=== PATIENT | male | born 1940 | race Caucasian/White ===

== ENCOUNTER 2017-07-01 12:02 | Inpatient (IN) | payer MEDICARE ==
[2017-07-01 12:37] LABS: BASO % 0.2 % (0-6); EOS % 0.8 % (0-6); GRAN % 74.1 % (47-80); HEMATOCRIT 43.4 % (42.0-52.0); HEMOGLOBIN 14.7 gm/dl (14.0-18.0); LYMPH % 15.7 % (16-45); MEAN CELL VOLUME 93.5 fl (81-97); MEAN CORPUSCULAR HEMOGLOBIN 31.7 pg (27-33); MEAN CORPUSCULAR HGB CONC 33.9 g/dl (32-36); MEAN PLATELET VOLUME 10.8 fl (7.4-10.4); MONO % 9.2 % (0-9); PLATELET COUNT 270 K/uL (130-400); RED BLOOD COUNT 4.64 M/uL (4.40-5.70); RED CELL DISTRIBUTION WIDTH 13.7 % (11.5-14.5); WHITE BLOOD COUNT W/O DIFF 12.3 K/uL (4.2-12.2)
--- NOTE | 2017-07-01 12:40 | Emergency Department Record ---
History of Present Illness - General Chief Complaint: Altered Mental Status Stated Complaint: ALTERED MENTAL STATE Time Seen by Provider: 07/01/17 12:23 Source: Patient, Family Mode of Arrival: Wheelchair Limitations: No limitations - History of Present Illness Initial Comments: The patient is here with family due to being confused this AM. The patient lives with his niece and she states since about 9am when she first spoke with him he has been confused. She also stated that at 6am the patient kept turning his TV off and on which is unusual for him. He last was seen normal last evening > 12 hours ago. There has been no hx of fall, trauma, fever, chills, CP , SOB, or AP. MD Complaint: Altered mental status Onset/Timin -: Hour(s) - [place] Coma Scale Eye Response: (4) Open spontaneously Motor Response: (6) Obeys commands Verbal Response: (4) Confused conversation [place] Total: 14 - Symptoms of Stroke Onset of Symptoms Date: 07/01/17 Onset of Symptoms Time: 06:00 Symptom Onset Unknown: Yes (family first noticed at 0600) Symptoms of stroke: Onset of Confusion, Unable to Think Clearly, Unsteady When Walking - Related Data Home Medications Medication Instructions Recorded Confirmed Last Taken Amlodipine Besylate [Norvasc] 10 mg PO DAILY 07/01/17 07/01/17 1 Day Ago ~06/30/17 Atorvastatin Calcium [Lipitor] 20 mg PO DAILY 07/01/17 07/01/17 1 Day Ago ~06/30/17 Benazepril HCl [Lotensin] 40 mg PO DAILY 07/01/17 07/01/17 1 Day Ago ~06/30/17 Hydrochlorothiazide [Hctz 12.5MG] 12.5 mg PO DAILY 07/01/17 07/01/17 1 Day Ago ~06/30/17 Insulin Detemir [Levemir] 6 units SQ DAILY 07/01/17 07/01/17 07/01/17 Allergies Allergy/AdvReac Type Severity Reaction Status Date / Time No Known Drug Allergies Allergy Verified 07/01/17 12:29 Travel Screening - Travel/Exposure Within Last 30 Days Have you traveled within the last 30 days?: No - Travel/Exposure Within Last Year Have you traveled outside the [place] in the last year?: No - Additonal Travel Details Have you been exposed to anyone with a communicable illness?: No - Travel Symptoms Symptom Screening: None Review of Systems Constitutional: Denies: Chills, Fever Eyes: Denies: Eye discharge ENT: Denies: Congestion Respiratory: Denies: Cough, Dyspnea Cardiovascular: Denies: Arrhythmia, Chest pain Past Medical History - SOCIAL HISTORY Smoking Status: Never smoker Alcohol Use: None Drug Use: None - RESPIRATORY Hx Respiratory Disorders: No - CARDIOVASCULAR Hx Hypertension: Yes Hx Irregular Heartbeat: Yes - NEURO Hx Neuro Disorders: No - GI Comment:: hernia - Hx Genitourinary Disorders: No - ENDOCRINE Hx Diabetes: Yes Hx Thyroid Disease: No - MUSCULOSKELETAL Hx Arthritis: Yes - PSYCH Hx Psych Problems: No - HEMATOLOGY/ONCOLOGY Hx Hematology/Oncology Disorders: No Family Medical History Any Significant Family History?: Yes Family Hx Comment (NOT TO BE USED IN PLACE OF ITEMS BELOW): Pt confused Physical Exam - General General Appearance: Alert, Cooperative, No acute distress - Head Head exam: Atraumatic, Normocephalic, Normal inspection - Eye Eye exam: Normal appearance, PERRL - Neck Neck exam: Normal inspection, Full ROM. negative: Tenderness - Respiratory Respiratory exam: Normal lung sounds bilaterally. negative: Respiratory distress - Cardiovascular Cardiovascular Exam: Regular rate, Normal rhythm, Normal heart sounds - GI/Abdominal GI/Abdominal exam: Soft, Normal bowel sounds. negative: Tenderness - Neurological Neurological exam: Alert. negative: Motor sensory deficit (There is no arm or leg numbness, weakness or tingling.), Oriented X3 (The patient is only oriented to name, place, Bday but not age, day or year. ) Course Vital Signs 07/01/17 12:11 Temperature 98.2 F Pulse Rate 84 Respiratory 16 Rate Blood Pressure 133/89 Pulse Ox 95 - Reevaluation(s) Reevaluation #1: The patient is doing a little better but is still mildly confused as to some things. He knows his name, Bday, place, and the present and past presidents of the [place]. He is confused to the day of the week and year. The patient is able to get up walking with very minimal ataxia but no focal weakness. Due to those facts I am concerned he may have had a small CVA during the night and recommended hospital admission which he accepted. I also did discuss the case with Dr. Myles and he agrees to the plan. 07/01/17 14:00 Medical Decision Making - Data Complexity MDM Data: Labs Ordered and/or Reviewed, X-Ray Ordered and/or Reviewed, EKG Ordered and/or Reviewed - Lab Data Result diagrams: 07/01/17 12:15 07/01/17 12:15 - EKG Data -: EKG Interpreted by Me EKG: No Acute Changes, Unchanged From Previous - Radiology Data Radiology results: Report reviewed (Head CT and CXR: No acute changes.) Disposition Disposition: Admit Clinical Impression: CVA (cerebral vascular accident) Qualifiers: CVA mechanism: unspecified Qualified Code(s): I63.9 - Cerebral infarction, unspecified Disposition: Still a Patient at [facility] Decision to Admit: Admit from ER Decision to Admit Date: 07/01/17 Decision to Admit Time: 14:03 Accepting Physician: Shameka Time Discussed w/Accepting Physician: 14:03 Condition: (2) Stable Instructions: Altered Mental Status (ED) Forms: Patient Portal Access Time of Disposition: 14:03 Quality - Quality Measures Quality Measures: N/A - Blood Pressure Screening View Details: Yes Does Patient Have Any of the Following: Active Dx of HTN Blood Pressure Classification: Pre-Hypertensive BP Reading Systolic Measurement: 133 Diastolic Measurement: 89 Screening for High Blood Pressure: Patient Exclusion, Hx of HTN [[id number]]
[2017-07-01 12:50] LABS: BLOOD UREA NITROGEN 12 mg/dL (8-23); CREATININE 0.9 mg/dL (0.7-1.2); EST GLOMERULAR FILTRATION RATE > 60 mL/min
[2017-07-01 12:52] LABS: PARTIAL THROMBOPLASTIN TIME 25.2 SECONDS (24.5-39.1); PROTHROMBIN TIME (PATIENT) 10.6 SECONDS (9.5-12.1)
[2017-07-01 12:53] LABS: GLUCOSE,RANDOM 142 mg/dL (74-109)
[2017-07-01 12:56] LABS: CREATINE PHOSPHOKINASE 56 U/L (39-308)
[2017-07-01 12:58] LABS: CKMB 2.4 ng/mL (<6.73)
[2017-07-01] MEDS ORDERED: ASPIRIN 325 MG TABLET PO ONE (13:18)
[2017-07-01] MEDS ORDERED: ACETAMINOPHEN 500 MG TABLET PO PRN (16:02)
[2017-07-01] MEDS: ATORVASTATIN 20 MG TABLET PO SCH (17:01)
[2017-07-01] MEDS: AMLODIPINE BESYLATE 5MG TAB PO SCH (17:01)
[2017-07-01] MEDS: BENAZEPRIL 20 MG TABLET PO SCH (17:01)
[2017-07-01] MEDS: HYDROCHLOROTHIAZIDE 12.5 MG CAPSULE PO SCH (17:01)
[2017-07-01] MEDS ORDERED: ZINC OXIDE 28.35 GM TUBE TOP PRN (18:22)
[2017-07-01 19:52] LABS: CKMB 2.8 ng/mL (<6.73)
[2017-07-02 03:16] LABS: BASO % 0.2 % (0-6); EOS % 0.8 % (0-6); GRAN % 68.3 % (47-80); HEMATOCRIT 42.7 % (42.0-52.0); HEMOGLOBIN 14.2 gm/dl (14.0-18.0); LYMPH % 20.9 % (16-45); MEAN CELL VOLUME 93.2 fl (81-97); MEAN CORPUSCULAR HGB CONC 33.3 g/dl (32-36); MEAN PLATELET VOLUME 10.2 fl (7.4-10.4); MONO % 9.8 % (0-9); PLATELET COUNT 262 K/uL (130-400); RED BLOOD COUNT 4.58 M/uL (4.40-5.70); WHITE BLOOD COUNT W/O DIFF 12.6 K/uL (4.2-12.2)
[2017-07-02 03:28] LABS: BLOOD UREA NITROGEN 11 mg/dL (8-23); CREATININE 0.8 mg/dL (0.7-1.2); EST GLOMERULAR FILTRATION RATE > 60 mL/min; GLUCOSE,RANDOM 122 mg/dL (74-109)
[2017-07-02 03:32] LABS: CKMB 3.5 ng/mL (<6.73)
[2017-07-02 08:49] LABS: URINE APPEARANCE CLOUDY; URINE BILIRUBIN NEGATIVE (NEGATIVE); URINE BLOOD NEGATIVE (NEGATIVE); URINE COLOR YELLOW; URINE GLUCOSE (UA) NEGATIVE (NEGATIVE); URINE KETONE NEGATIVE (NEGATIVE); URINE LEUKOCYTE ESTERASE TRACE (NEGATIVE); URINE NITRITE NEGATIVE (NEGATIVE); URINE PROTEIN NEGATIVE (NEGATIVE); URINE UROBILINOGEN 0.2 E.U./dL (0.20 - 1.00)
[2017-07-02 08:59] LABS: URINE BACTERIA NONE SEEN; URINE EPITHELIAL CELLS 0 - 2 (FEW); URINE RBC NONE SEEN (NONE SEEN); URINE WBC 0 - 2 (0-2/hpf)
--- NOTE | 2017-07-02 09:19 | CT SCAN REPORT ---
DATE: 07/01/2017. EXAM: CT OF THE HEAD WITHOUT CONTRAST. HISTORY: Confusion and weakness. COMPARISON: None. TECHNIQUE: Routine noncontrast CT images of the head were obtained. FINDINGS: The ventricles, basal cisterns, and sulci are prominent consistent with generalized cerebral atrophy. There is periventricular hypoattenuation extending to the centrum semiovale most consistent with chronic microvascular ischemia. Additionally there are findings suggesting previous bilateral lacunar infarcts. No intracranial mass or hemorrhage. The paranasal sinuses demonstrate scattered mucosal thickening with probable mucosal retention cysts, right greater than left, in the maxillary sinus. Orbital contents are unremarkable. IMPRESSION: 1. NO ACUTE INTRACRANIAL ABNORMALITY. 2. SENESCENT CHANGES. [facility] [id number] [facility]
--- NOTE | 2017-07-02 09:26 | RADIOLOGY REPORT ---
DATE: 07/01/2017. EXAM: CHEST, TWO VIEWS. HISTORY: Weakness and confusion. COMPARISON: None. TECHNIQUE: Two views of the chest were obtained. FINDINGS: There is cardiomegaly. Aortic tortuosity. There is mild blunting of the posterior costophrenic angles probably related to pleural fluid or pleural parenchymal scarring. No focal consolidation. IMPRESSION: NO CONVINCING ACUTE CARDIOPULMONARY ABNORMALITY. SMALL PLEURAL EFFUSIONS VERSUS PLEURAL PARENCHYMAL SCARRING. CARDIOMEGALY. JOB NUMBER: [id number] MTDD
[2017-07-02] MEDS: AMLODIPINE BESYLATE 5MG TAB PO SCH (09:27)
[2017-07-02] MEDS: ASPIRIN 325 MG TAB ENTERIC-COATED PO SCH (09:27)
[2017-07-02] MEDS: BENAZEPRIL 20 MG TABLET PO SCH (09:27)
[2017-07-02] MEDS: HYDROCHLOROTHIAZIDE 12.5 MG CAPSULE PO SCH (09:27)
[2017-07-02] MEDS: ATORVASTATIN 20 MG TABLET PO SCH (09:27)
[2017-07-02] MEDS: LEVEMIR FLEXTOUCH 100 UNIT/ML INSULIN PEN SQ SCH (09:33)
[2017-07-02] MEDS: ENOXAPARIN 40 MG/0.4 ML SYR SQ SCH (15:02)
--- NOTE | 2017-07-03 07:24 | RADIOLOGY REPORT ---
EXAM: LEFT KNEE, FOUR VIEWS HISTORY: LEFT KNEE PAIN. TECHNIQUE: Four views of the left knee were obtained. FINDINGS: Moderate knee joint effusion. No fracture or malalignment. No prominent degenerative changes. The bones are osteopenic. IMPRESSION: MODERATE KNEE JOINT EFFUSION WITHOUT ACUTE OSSEOUS ABNORMALITY. [facility]BER: [id number] [facility]
[2017-07-03 07:27] LABS: BASO % 0.1 % (0-6); EOS % 1.6 % (0-6); HEMATOCRIT 42.4 % (42.0-52.0); HEMOGLOBIN 14.6 gm/dl (14.0-18.0); LYMPH % 24.2 % (16-45); MEAN CELL VOLUME 92.4 fl (81-97); MEAN CORPUSCULAR HEMOGLOBIN 31.8 pg (27-33); MEAN CORPUSCULAR HGB CONC 34.4 g/dl (32-36); MEAN PLATELET VOLUME 10.4 fl (7.4-10.4); MONO % 11.1 % (0-9); PLATELET COUNT 249 K/uL (130-400); RED BLOOD COUNT 4.59 M/uL (4.40-5.70); RED CELL DISTRIBUTION WIDTH 13.7 % (11.5-14.5); WHITE BLOOD COUNT W/O DIFF 10.5 K/uL (4.2-12.2)
--- NOTE | 2017-07-03 08:03 | History and Physical Report ---
DATE OF EVALUATION: 07/01/2017 DATE OF ADMISSION: 07/01/2017 CHIEF COMPLAINT: Confusion. HISTORY OF THE PRESENT ILLNESS: His confusion started this morning about 9:30, got worse at 11 a.m. They brought him to the Emergency Department for evaluation. The family noticed at 6 a.m. he was turning the TV on and off. He seemed to be confused about that. Patient denies pain, denies chest pain, denies dizziness, and denies any other pain. Patient has edema from his socks. Patient has a left groin hernia. His blood sugar at home was 135 per family during this episode of confusion. He was evaluated in the ER by Dr. Andrews, who diagnosed a CVA. CAT scan of his head was showing no acute changes. Chest x-ray: Cardiomegaly, small pleural effusion versus scarring. Patient has no shortness of breath or cough. He seems to remember me when I evaluated him, and also he is answering questions fairly appropriately. He is not sure of the date and time. He knows the year. Patient is clearing when I evaluated him in the ER at about 4:05, but still seems a little slower than is typical for him answering questions. PAST MEDICAL HISTORY: Diabetes mellitus, hypertension, left inguinal hernia. PAST SURGICAL HISTORY: Left thumb surgery. He is also blind. 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 He says they cannot take that away from him. MEDICATIONS ON ADMISSION: Insulin Levemir 6 units daily, hydrochlorothiazide 12.5 daily, Lotensin 40 mg daily, Lipitor 20 mg daily, Norvasc 10 mg daily. ALLERGIES: No known allergies. FAMILY PSYCHOSOCIAL HISTORY: No significant family history brought up. Never smoked. No alcohol or drug use. REVIEW OF SYSTEMS: HEENT: No upper respiratory infection symptoms, cough, cold, or congestion. Cardiovascular: No chest pain, palpitations, or arrhythmias. Respiratory: No cough, cold or congestion. Gastrointestinal: No nausea, vomiting, diarrhea, black stools, or bloody stools. Genitourinary: No dysuria, hematuria, frequency, or burning on urination. Musculoskeletal: No joint or bony abnormalities. Neurologic: See Chief Complaint. Confusion with speech and what was going on. No seizures. His balance might be slightly off. Endocrine: He has diabetes mellitus type 2. Integument: No rash, ulcers, changes in moles, or yellow skin. PHYSICAL EXAMINATION: VITAL SIGNS: Height 5'8". Weight 220 pounds. Temperature 98.2, pulse 87, blood pressure 154/81, respiratory rate 16, O2 saturation 98% 2 liters nasal cannula. When he was on room air, it was 95%. HEENT: Pupils equal, round, and reactive to light and accommodation. Extraocular muscles intact. Throat is clear. Nose is clear. Tympanic membranes galaviz. NECK: Supple. No jugular venous distention. No hepatojugular reflux. No carotid bruits. Thyroid is smooth. CARDIOVASCULAR: Regular rate and rhythm without murmurs, clicks, rubs, or gallops. RESPIRATORY: Clear to auscultation and percussion. ABDOMEN: Soft, nontender, no hepatosplenomegaly. No masses or tenderness. Bowel sounds active. No bruits. EXTREMITIES: No pitting edema. No cyanosis or clubbing. Full range of motion. Peripheral pulses good. BREASTS: Normal male breasts. GENITALIA: Deferred. He has a known left inguinal hernia, large. Did not want any surgery on it. RECTAL: Deferred. NEUROLOGIC: Cranial nerves II-XII intact. No gross deficits. Sensation normal. Strength normal. Deep tendon reflexes equal bilaterally. Babinski is negative. His speech and his thought patterns were off slightly this morning. MENTAL STATUS: Alert and oriented to person and place. Some confusion on time as far as the date, the year, and the month. IMPRESSION: 1. CVA versus TIA. 2. Diabetes mellitus type 2. 3. Hypertension. 4. Hypercholesterolemia. PLAN: Serial neurological exams. Further evaluation. INPATIENT CERTIFICATION: Admit to Inpatient Care. Based on my medical assessment and after consideration of patient risk factors, age, comorbidities, and patient presenting symptoms on Acute, I expect this patient will remain in the hospital greater than or equal to 2 midnights, and the services needed warrant inpatient care because of his CVA. ESTIMATED LENGTH OF STAY: 3 days. The patient may reasonably be expected to be discharged or transferred to a hospital within 96 hours after admission to [facility]. I certify that my determination is in accordance with my understanding of Medicare requirements for reasonable and necessary inpatient services. ADDENDUM LABORATORY: Troponin I slightly up at 0.02, which is in the indeterminate range. DIAGNOSIS: Slightly indeterminate elevated troponin T. MTDD
[2017-07-03 08:07] LABS: BLOOD UREA NITROGEN 14 mg/dL (8-23); CREATININE 0.8 mg/dL (0.7-1.2); EST GLOMERULAR FILTRATION RATE > 60 mL/min; GLUCOSE,RANDOM 106 mg/dL (74-109)
[2017-07-03 08:09] LABS: TOTAL PROTEIN 7.8 g/dL (6.6-8.7)
[2017-07-03 08:10] LABS: ALBUMIN 4.1 g/dL (4.0-5.0); ALKALINE PHOSPHATASE 102 U/L (40-129); ALT/SGPT 19 U/L (<41); AST/SGOT 36 U/L (10.0-50.0); BILIRUBIN,DIRECT 0.2 mg/dL (0-0.3)
[2017-07-03 08:37] LABS: AMMONIA 44 umol/L (16.0-60.0)
[2017-07-03] MEDS: HYDROCHLOROTHIAZIDE 12.5 MG CAPSULE PO SCH (10:31)
[2017-07-03] MEDS: ASPIRIN 325 MG TAB ENTERIC-COATED PO SCH (10:31)
[2017-07-03] MEDS: BENAZEPRIL 20 MG TABLET PO SCH (10:32)
[2017-07-03] MEDS: AMLODIPINE BESYLATE 5MG TAB PO SCH (10:33)
[2017-07-03] MEDS: ENOXAPARIN 40 MG/0.4 ML SYR SQ SCH (10:33)
[2017-07-03] MEDS: LEVEMIR FLEXTOUCH 100 UNIT/ML INSULIN PEN SQ SCH (10:38)
--- NOTE | 2017-07-03 12:00 | Rehab Evaluation ---
Patient Information - Patient Information Diagnosis: Altered Mental State, R/O CVA Ordered Treatment: PT Evaluate and Treat Status: Initial Evaluation Surgery: No Past Medical/Surgical Hx: PAST MEDICAL/SURGICAL HISTORY Past Surgical History left thumb PMH - Respiratory Hx Respiratory Disorders No PMH - Cardiovascular Hx Hypertension Yes Hx Irregular Heartbeat Yes PMH - Neuro Hx Neurological Disorders No PMH - GI Comment: hernia PMH - Hx Genitourinary Disorders No PMH - Endocrine Hx Diabetes Yes Hx Thyroid Disease No PMH - Musculoskeletal Hx Arthritis Yes PMH - Psych Hx Psychiatric Problems No PMH - Hematology/Oncology Hx Hematology/Oncology No Disorders Social History: Detail (The patient lives in a ranch style home with an exposed basement. The house does not have any steps to enter, but the basement has 13 steps to go down to the basement. The steps have a railing, but the patient did not specify the side. The patient has access to both a tub/shower and a walk-in shower. He does not use a shower seat and the shower does not have grab bars present. The patient has an elevated toilet, but no grab bars present. He reports no use of an assistive device for ambulation. After evaluation, the patient's niece's stated that the patient hasn't taken a true shower/ bath for some time. He said that he primarily takes a sponge bath for cleaning himself.) Precautions: [place] - Time With Patient Total Time Spent With Patient (Min): 30 Treatment Procedures: Detail (PT Initial Evaluation) Subjective Information - Subjective Information Per Patient Objective Data - Pain Pain Present: No Pain Intensity: 0 Pain Scale Used: Numeric (1 - 10) - Mental Status Patient Orientation: Person (Knew full name and ), Place (Able to recognize his location), Time (The patient was not able to give the correct year or current month. Showed perseveration during evaluation - became fixated on explaining how his glasses functioned. The patient was able to follow simple commands for ROM and strength assessment, but was unable to complete more instruction for coordination testing.) - Visual Perception Deficit - ROM Within normal limits (Both ankles and hips were WNL. The L Knee had limited knee extension. The R knee was within WNL.) - Strength/Tone Within normal limits (The patient had excellent functional strength. Both hips, knees, and ankles were 5/5) - Coordination Appears within normal limits for therapeutic activities (ISABEL Toe-Tapping was WNL ISABEL Supination/Pronation was WNL) - Bed Mobility Needs Assist (Bed mobility was not assessed secondary to patient was sitting in chair.) - Transfers Independent (The patient was able to transfer from sit to stand independently. The patient completed a wheelchair to chair transfer with supervision for safety.) - Balance Balance Sitting: Good (No loss of balance with sitting in his chair.) Balance Standing: Fair (The patient said that he requires some time upon standing to gain his balance, but after this immediate standing he showed no LOB with gait activities. The Tinetti Balance Assessment was completed and the patient scored 21/28, which placed him as a moderate fall risk.) - Sensation Intact - Gait Detail (The patient ambulated without device with supervision for safety only a total of 52 feet. The patient had decreased stride length bilaterally.) Therapy Assessment - Therapy Assessment Detail (The patient demonstrates excellent LE strength, but has some limitations in L Knee extension ROM. The right knee, hip, and ankle ROM were all WNL, as well as the L Hip and ankle ROM. He has some difficulty with immediate standing balance and dynamic balance. He scored 21/28 on the Tinetti Balance Assessment, which places him as a moderate fall risk. The patient has most difficulty cognitively, where he displayed some confusion and perseveration throughout the evaluation. He was somewhat difficult to redirect, but was able to follow simple commands well. The patient may benefit from further PT services to address balance problems and ADLs that are completed in standing.) Problem List - Problem List Physical Therapy Problem List: Detail (1) Decreased Standing and Dynamic Balance 2) Visual Deficits 3) Cognitive Deficits that were not present prior to admission) Goals - Goals Physical Therapy Goals: 1) Assessment of patient's ability to ascend/descend stairs for safety in the home environment. 2) Increase Tinneti score to place him in the low-risk category for a fall Prognosis - Prognosis Good Plan - Plan Physical Therapy Plan: The patient would benefit from further inpatient therapy for balance activities and assessment of safety judgement during mobility activities, including stairs and gait activities.
--- NOTE | 2017-07-03 12:51 | US CAROTID DOPPLER REPORT ---
EXAM: BILATERAL CAROTID DOPPLER ULTRASOUND HISTORY: CONFUSION. TECHNIQUE: Sonographic evaluation of the vasculature of the neck was performed with the addition of Doppler and spectral analysis. FINDINGS: Right ICA: 61 cm/s Right CCA: 42 cm/s Right ECA: 54 cm/s Right Vertebral Artery: 47 cm/s Right ICA/CCA ratio: 1.4 Left ICA: 51 cm/s Left CCA: 58 cm/s Left ECA: 62 cm/s Left Vertebral Artery: 53 cm/s Left ICA/CCA ratio: 0.9 There is mild atheromatous plaque scattered throughout. There is mild spectral broadening. IMPRESSION: MILD ATHEROMATOUS PLAQUE AND STENOSIS INVOLVING THE VASCULATURE OF THE NECK. NO HEMODYNAMICALLY SIGNIFICANT STENOSIS IS APPRECIATED. JOB NUMBER: [id number] MTDD
--- NOTE | 2017-07-03 14:23 | Rehab Evaluation ---
Patient Information - Patient Information Diagnosis: Altered Mental State, R/O CVA Ordered Treatment: OT Evaluate and Treat Status: Initial Evaluation Surgery: No Past Medical/Surgical Hx: PAST MEDICAL/SURGICAL HISTORY Past Surgical History left thumb PMH - Respiratory Hx Respiratory Disorders No PMH - Cardiovascular Hx Hypertension Yes Hx Irregular Heartbeat Yes PMH - Neuro Hx Neurological Disorders No PMH - GI Comment: hernia PMH - Hx Genitourinary Disorders No PMH - Endocrine Hx Diabetes Yes Hx Thyroid Disease No PMH - Musculoskeletal Hx Arthritis Yes PMH - Psych Hx Psychiatric Problems No PMH - Hematology/Oncology Hx Hematology/Oncology No Disorders Premorbid Status: Detail (Pt lives with niece and her family in a 1 story house with walk out basement. He lives in the basement where there is a kitchen but he must go up 13 steps to the main level to use the bathroom. He has access to a walk in shower and a tub/shower comb. but per niece he has not showered in a long time as he usually sponge bathes. They have elevated toilets and are planning to install grab bars. He was Ind with all ADLs and IADLs prior to admission. He ambulated without an assistive device. He has a commode and 2 wheeled walker. He does not drive as he is legally blind but he rides his bike everywhere.) Social History: Detail (Supportive niece and niece's spouse were present for evaluation.) Precautions: [place], Fall, Other ([place], expressive aphasia, legally blind) - Time With Patient Total Time Spent With Patient (Min): 50 Treatment Procedures: Detail (OT eval low complexity) Subjective Information - Subjective Information Per Patient, Other (Per niece and her spouse) Objective Data - Pain Pain Present: No - Mental Status Patient Orientation: Person (Pt oriented to self, birthday, [place], states month as "May", able to follow all verbal commands but displays expressive aphasia.) - Visual Perception Deficit (Pt reports he has been legally blind for 40 years although he is able to see objects and he wears glasses.) - ROM Within normal limits (Mack UE AROM WNL) - Strength/Tone Within normal limits (Mack UE strength 4+/5 throughout) - Coordination Appears within normal limits for therapeutic activities (Mack hand coor WNL per observation during ADL activity.) - Transfers Independent (Ind with sit to stand from chair.) - Balance Balance Sitting: Good Balance Standing: Fair - Sensation Intact - Gait Detail (Pt ambulated to bathroom sink with CG assist, no assistive device.) - ADL's/IADL's Detail (Pt able to complete shaving with set up and assist to open shaving cream as it was different than his. He required minimal verbal cueing at times during task due to decreased vision. Niece reports he is toileting Indly.) Therapy Assessment - Therapy Assessment Detail (Pt presents with WNL UE function, expressive aphasia with potential for decreased cognition although this could be due to aphasia. Min assist for self cares but will further assess at subsequent visit.) Problem List - Problem List Physical Therapy Problem List: Detail (1) Decreased Standing and Dynamic Balance 2) Visual Deficits 3) Cognitive Deficits that were not present prior to admission) Occupational Therapy Problem List: Detail (1. Decreased Ind with self care activities. 2. Expressive aphasia with possible impairment in cognition.) Goals - Goals Physical Therapy Goals: 1) Assessment of patient's ability to ascend/descend stairs for safety in the home environment. 2) Increase Tinneti score to place him in the low-risk category for a fall Occupational Therapy Goals: 1. Assess pts Ind and safety with sponge bathing and dressing tasks. 2. Pt will vocalize orientation x 3 accurately. Prognosis - Prognosis Good Plan - Plan Physical Therapy Plan: The patient would benefit from further inpatient therapy for balance activities and assessment of safety judgement during mobility activities, including stairs and gait activities. Occupational Therapy Plan: OT 2-4 days per week to address self care Ind and safety, cognition, functional mobility and communication. Pt may benefit from short IP rehab stay.
--- NOTE | 2017-07-04 08:40 | Occupational Therapy Tx Note ---
Occupational Therapy Tx Note - Treatment Note Tolerated: Good Total Time Spent With Patient: 30 (ADL) Occupational Therapy Treatment Note: Detail (S: Pt sitting at EOB. O: Pt oriented to self, month, states location as a fdc and year as 1998. Pt amb to toilet with SBA and completed toileting Indly. Doffed briefs and gown with assist to untie gown. Amb to sink and completed partial sponge bath in standing with minimal verbal cues. Pt amb to EOB with SBA and donned briefs with min assist to orient in correct leg opening, donned PJ bottoms Indly including tying, donned tshirt and button down shirt with verbal cues to orient button down shirt. Ind with fastening buttons. Pt able to eat Indly including set up. A: SBA for ambulating in room, min verbal cueing required for self cares but this could be due to visual impairment and pt being in unfamiliar environment. Pt oriented x 1, continued to be confused re: year even after re- oriented.) Occupational Therapy Problem List: Detail (1. Decreased Ind with self care activities. 2. Expressive aphasia with possible impairment in cognition.) Occupational Therapy Goals: 1. Assess pts Ind and safety with sponge bathing and dressing tasks. 2. Pt will vocalize orientation x 3 accurately. Prognosis: Good Occupational Therapy Plan: OT 2-4 days per week to address self care Ind and safety, cognition, functional mobility and communication. Pt may benefit from short IP rehab stay.
--- NOTE | 2017-07-04 10:19 | Physical Therapy Tx Note ---
Physical Therapy Tx Note - Treatment Note Tolerated: Good Total Time Spent With Patient: 30 Physical Therapy Tx Note: Detail (The patient was sitting in his chair upon arrival. The patient was able to transfer from sit to stand independently, and then was able to ambulate from his room to the nurse's station (about 48 feet) with supervision for safety only. He was then able to ascend/descend a total of 11 steps with supervision for safety ascending, and hand hold assist of descending. He utilized a step to gait pattern for descending, and used a reciprocal gait pattern for ascending. He was then able to ambulate back to his room (another 48 feet) with supervision only. The patient then completed balance activities back in his room. Activities included: static standing (One 20 second round), tandem stance with both foot lead (15 seconds with each lead) , and dynamic standing while reaching targets (Elevated targets, lower targets, cross body reaching, same side reaching x 5 reaches both sides). He did not lose his balance with any of these activities. He was left sitting in his chair with his call light in reach, and chair alarm was reset.) Physical Therapy Problem List: Detail (1) Decreased Standing and Dynamic Balance 2) Visual Deficits 3) Cognitive Deficits that were not present prior to admission) Physical Therapy Goals: 1) Assessment of patient's ability to ascend/descend stairs for safety in the home environment - MET, required supervision for safety only. 2) Increase Tinneti score to place him in the low-risk category for a fall Prognosis: Good Physical Therapy Plan: The patient would benefit from further inpatient therapy for balance activities and assessment of safety judgement during mobility activities, including stairs and gait activities.
[2017-07-04] MEDS: HYDROCHLOROTHIAZIDE 12.5 MG CAPSULE PO SCH (11:59)
[2017-07-04] MEDS: AMLODIPINE BESYLATE 5MG TAB PO SCH (12:01)
[2017-07-04] MEDS: BENAZEPRIL 20 MG TABLET PO SCH (12:01)
[2017-07-04] MEDS: ASPIRIN 325 MG TAB ENTERIC-COATED PO SCH (12:01)
[2017-07-04] MEDS: LEVEMIR FLEXTOUCH 100 UNIT/ML INSULIN PEN SQ SCH (12:02)
[2017-07-04] MEDS: ENOXAPARIN 40 MG/0.4 ML SYR SQ SCH (12:02)
--- NOTE | 2017-07-04 15:13 | Speech Therapy Evaluation ---
Speech Therapy Evaluation - Living & Support Living Situation/Support System: Patient lives at home with various home environments. - Hearing Evaluation Hearing: Fail ([place], no aids noted.) - Vision Evaluation Vision: Glassess (Patient is legally blind.) - Expressive Language (Area of Concern) Expressive Language: Word Cues Needed: Modeling, Time Expressive Language Comment: Patient can explain simple thoughts but requires consistent cues to contribute consistently. - Receptive Language (Area of Concern Receptive Language: Basic - Written Expression Written Expression: Icon Duplication (Did not assess due to vision.) - Cognition Orientation: Person Attention: Simple Executive Functions: Organization, Planning, Problem Solving Cognition Comment: Patient completed the [employer] Blind which he scored a 7/22 which is a severe cognitive deficit. Primary areas of concern include consistent working and short term memory for ADL completion with adequate safety awareness. Patient would be appropriate for home based therapy given increased home assistance to help maintain safety at home due to reduced awareness of deficits. - Voice & Motor Speech Voice: Within Normal Limits Dysarthria: N/A Apraxia: N/A Aware of Difficulties: No
--- NOTE | 2017-07-04 17:21 | Discharge Note ---
VTE H&P Assessment - Risk for VTE Risk for VTE: Yes Risk Level: Moderate Risk Assessment Date: 07/01/17 Risk Assessment Time: 13:00 VTE Orders Placed or Will Be Placed: Yes Discharge Medications - Discharge Medications Prescriptions: Aspirin [Aspirin EC] 325 mg PO DAILY #60 tablet. Home Medications: Ambulatory Orders Amlodipine Besylate [Norvasc] 10 mg PO DAILY 07/01/17 [Last Taken 1 Day Ago ~] Atorvastatin Calcium [Lipitor] 20 mg PO DAILY 07/01/17 [Last Taken 1 Day Ago ~] Benazepril HCl [Lotensin] 40 mg PO DAILY 07/01/17 [Last Taken 1 Day Ago ~] Hydrochlorothiazide [Hctz] 12.5 mg PO DAILY 07/01/17 [Last Taken 1 Day Ago ~] Insulin Detemir [Levemir] 6 units SQ DAILY 07/01/17 [Last Taken 07/01/17] Aspirin [Aspirin EC] 325 mg PO DAILY #60 tablet. 07/04/17 [Last Taken Unknown] Discharge Note - Date Date of Discharge Note: 07/04/17 Disposition: Home, Self-Care Condition: (2) Stable Instructions: Altered Mental Status (ED) Additional Instructions: Follow up with Dr. Myles on July 11, 2017 at 10:30am. Prescriptions: Aspirin [Aspirin EC] 325 mg PO DAILY #60 tablet. Referrals: Brandyn Myles D.O. [Primary Care Provider] - Forms: Patient Portal Access Activity at Discharge: Increase Activity as Tolerated Diet at Discharge: Low Salt Diet
--- NOTE | 2017-07-05 12:40 | Discharge Summary ---
DATE: 07/04/2017 DISCHARGE DIAGNOSES: 1. 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 2. History of diabetes mellitus type 2. 3. History of hypertension. 4. History of hypercholesterolemia. 5. Left knee contusion. ATTENDING PHYSICIAN: Brandyn Myles DO REASON FOR HOSPITALIZATION: Confusion. This 77-year-old male started having confusion this morning about 9:30 a.m. It got worse at 11 a.m. They brought him to the emergency department for evaluation. Family noticed at 6 a.m. he was turning on and off the TV and did not seem to have any purpose in doing it. He seemed to be confused about that. The patient denies pain, denies chest pain, denies dizziness, denies any other chronic pain. The patient has edema from his socks. The patient has a left groin hernia. His blood sugar at home was 135 per family member during this episode of confusion. Chest x-ray showing cardiomegaly, pleural effusion versus scarring. The patient has no shortness of breath or cough. He seems to remember me when I evaluate him and he is also answering questions fairly appropriately but then he would get confused and wander off and it would not make sense what he was saying. He was not sure of the date or time. He knows the ER. The patient is clearing when I evaluate him in the ER at about 4:05 p.m. but still seems a little slower than is typical for him answering questions. SIGNIFICANT FINDINGS: Carotid Dopplers were negative. CTA of the head showing no infarct. Possible senescent changes. Chest x-ray showing no convincing acute cardiopulmonary abnormalities. Small pleural effusion versus pleural parenchymal scarring, cardiomegaly. Echocardiogram was done but the report is not back in the chart; still pending. He had cardiac workup. Cardiac enzymes showing indeterminate troponin I's of 0.02, 0.024, 0.027. CK-MB remained normal. EKG showing no acute changes. Normal sinus rhythm. The knee x-ray because he had a bruise and significantly painful standing on the left knee was negative for fracture. He had a metabolic workup as well as a cardiac workup. Laboratory revealed normal liver enzymes, normal ammonia. BUN 14, creatinine 0.8, potassium 4.2, sodium 138, WBC 10,500, hemoglobin 14.6, granulocytes 63, lymphocytes 24, monocytes 11.1. TSH was 1.1. Folate was greater than 20. Vitamin B12 was 343. Albumin was normal at 4.1. Total protein 7.8. THERAPY PROVIDED: He had neuro checks and had stroke scale daily. He gradually improved. The patient was ambulating in the room, feeding himself, able to take care of himself in the bathroom. He was having expressive aphasia mostly and that seemed to clear on the day of discharge. I expect when he is tired, he will still have problems with that in the future. CONDITION ON DISCHARGE: Much improved. DISCHARGE INSTRUCTIONS: Follow up with Dr. Myles in 7 days. Aspirin 325 daily. Lipitor 20 mg daily. Levemir 6 units at h.s. Hydrochlorothiazide 12.5 mg a day. Lotensin 40 mg a day. Norvasc 10 mg a day. Speech Therapy will come into the home to help him with resolving his expressive aphasia from his CVA. FRANSISCO
== END 2017-07-04 16:15 | disposition home or self-care (01) | DRG 948 ==
LOC: ER 12:02 → MEDSURG 15:56
PROVIDERS: ADMIT Emergency Medicine; ATTEND Emergency Medicine
DX: I63.9 Cerebral infarction, unspecified (principal); R41.82 Altered mental status, unspecified; I10 Essential (primary) hypertension; K40.90 Unilateral inguinal hernia, without obstruction or gangrene, not specified as recurrent; E11.9 Type 2 diabetes mellitus without complications; Z79.4 Long term (current) use of insulin; M19.90 Unspecified osteoarthritis, unspecified site; E78.00 Pure hypercholesterolemia, unspecified
CPT/HCPCS: 36416; 70450; 71046; 80048; 80076; 81001; 82140; 82550; 82553; 82607; 82746; 82948; 83605; 84443; 84484; 85025; 85610; 85730; 93005; 93010; 93880; 97165; 97530; 97535; 99285; J1650

== ENCOUNTER 2017-09-27 15:24 | Inpatient (IN) | payer MEDICARE, MEDICAID ==
--- NOTE | 2017-09-27 15:58 | Emergency Department Record ---
History of Present Illness - General Chief Complaint: Confusion Stated Complaint: PT SAYS JUST DOESNT FEEL RIGHT Time Seen by Provider: 09/27/17 15:44 Source: Patient, Family Mode of Arrival: Ambulatory Limitations: No limitations - History of Present Illness Initial Comments: The patient is here due to not feeling well for at least one day. He lives with his niece and he did have a CVA about 3 months ago. The patient since has had some confusion but it appears to be worse now. He also recently about a month ago get transferred to [facility] from the ED here due to cardiac issues and did have a heart catheterization performed and did have 2 stents placed. Since he has been on Plavix and Metoprolol. The patient additionally did fall 3 days ago at home but did not seem hurt per his niece. Today he just does not seem himself and has been more confused. He denies any JHA, CP, SOB, or CAMILO. MD Complaint: Altered mental status, Confusion Onset/Timin -: Days(s) Severity: Moderate Consistency: Constant Context: Unknown Associated Symptoms: Denies other symptoms - Jeny Coma Scale Eye Response: (4) Open spontaneously Motor Response: (6) Obeys commands Verbal Response: (5) Oriented [place] Total: 15 - Related Data Home Medications Medication Instructions Recorded Confirmed Last Taken Clopidogrel Bisulfate [Plavix] 75 mg PO DAILY 09/27/17 09/27/17 09/27/17 Metoprolol Martinez/Hydrochlorothiaz 1 each PO DAILY 09/27/17 09/27/17 09/27/17 [Metoprolol ER-Hctz 100-12.5 mg] Previous Rx's Medication Instructions Recorded Aspirin [Aspirin EC] 325 mg PO DAILY #60 tablet. 07/04/17 Allergies Allergy/AdvReac Type Severity Reaction Status Date / Time No Known Drug Allergies Allergy Verified 09/27/17 15:28 Travel Screening - Travel/Exposure Within Last 30 Days Have you traveled within the last 30 days?: No - Travel/Exposure Within Last Year Have you traveled outside the [place] in the last year?: No - Additonal Travel Details Have you been exposed to anyone with a communicable illness?: No - Travel Symptoms Symptom Screening: None Review of Systems Constitutional: Reports: Malaise. Denies: Chills, Fever Eyes: Denies: Eye discharge ENT: Denies: Congestion Respiratory: Denies: Cough, Dyspnea Cardiovascular: Denies: Arrhythmia, Chest pain Endocrine: Reports: Fatigue Gastrointestinal: Denies: Abdominal pain Genitourinary: Denies: Dysuria Musculoskeletal: Denies: Arthralgia, Back pain Past Medical History - SOCIAL HISTORY Smoking Status: Never smoker Alcohol Use: None Drug Use: None - RESPIRATORY Hx Respiratory Disorders: No - CARDIOVASCULAR Hx Hypertension: Yes Hx Irregular Heartbeat: Yes - NEURO Hx Neuro Disorders: No Hx CVA: Yes (06/2017 right sided minor residuals) - GI Hx GI Disorders: Yes Comment:: hernia - Hx Genitourinary Disorders: No - ENDOCRINE Hx Diabetes: Yes Hx Thyroid Disease: No - MUSCULOSKELETAL Hx Arthritis: Yes - PSYCH Hx Psych Problems: No - HEMATOLOGY/ONCOLOGY Hx Hematology/Oncology Disorders: No Family Medical History Any Significant Family History?: No Family Hx Comment (NOT TO BE USED IN PLACE OF ITEMS BELOW): Pt confused Physical Exam - General General Appearance: Alert, Cooperative, No acute distress - Head Head exam: Atraumatic, Normocephalic, Normal inspection - Eye Eye exam: Normal appearance, PERRL, EOMI - ENT Throat exam: Normal inspection. negative: Tonsillar erythema, Tonsillar exudate - Neck Neck exam: Normal inspection, Full ROM. negative: Tenderness - Respiratory Respiratory exam: Normal lung sounds bilaterally. negative: Respiratory distress - Cardiovascular Cardiovascular Exam: Regular rate, Normal rhythm, Normal heart sounds - GI/Abdominal GI/Abdominal exam: Soft, Normal bowel sounds. negative: Tenderness - Extremities Extremities exam: Normal inspection, Full ROM, Normal capillary refill. negative: Tenderness - Neurological Neurological exam: Alert, Normal gait. negative: Abnormal gait, Altered, Motor sensory deficit (There are no focal motor or sensory deficits.), Oriented X3 ( The patient is only oriented to name only.) - Psychiatric Psychiatric exam: negative: Agitated, Anxious Course Vital Signs 09/27/17 15:32 Temperature 97.3 F L Pulse Rate 89 Respiratory 24 Rate Blood Pressure 193/116 Pulse Ox 93 L - Reevaluation(s) Reevaluation #1: The patient is doing very well at this time. His BP is improved and his O2 sat is very stable at 97%. I did discuss the plan with family and did recommend hospital admission here at [facility]. I also did discuss the issues with the family and Dr. Myles who accepted the admission. Due to the borderline pos Trop I did consult Dr. Alxe from [facility] Cardiology and he does believe the patient is stable for hospital admission here at [facility]. 09/27/17 17:27 Reevaluation #2: The patient is doing well at this time. He did urinate about 500 CC's of fluid and his breathing is not labored. The patient denies any CP or SOB and is resting comfortably. 09/27/17 17:55 Medical Decision Making - Data Complexity MDM Data: Labs Ordered and/or Reviewed, X-Ray Ordered and/or Reviewed, EKG Ordered and/or Reviewed - Lab Data Result diagrams: 09/27/17 16:00 09/27/17 16:00 - EKG Data -: EKG Interpreted by Ut EKG: No Acute Changes - Radiology Data Radiology results: Report reviewed (CXR: Mild CHF with CMG. Head CT: No acute changes, old CVA and lacunar infarcts.) Disposition Disposition: Admit Clinical Impression: CHF (congestive heart failure) Qualifiers: Heart failure type: unspecified Heart failure chronicity: acute Qualified Code( s): I50.9 - Heart failure, unspecified Disposition: Still a Patient at [facility] Decision to Admit: Admit from ER Decision to Admit Date: 09/27/17 Decision to Admit Time: 17:29 Accepting Physician: Shameka Time Discussed w/Accepting Physician: 17:29 Condition: (2) Stable Forms: Patient Portal Access Time of Disposition: 17:30 Quality - Quality Measures Quality Measures: N/A - Blood Pressure Screening View Details: Yes Does Patient Have Any of the Following: Active Dx of HTN Blood Pressure Classification: Hypertensive Reading Systolic Measurement: 193 Diastolic Measurement: 116 Screening for High Blood Pressure: Patient Exclusion, Hx of HTN [G9744]
[2017-09-27 16:11] LABS: BASO % 0.1 % (0-6); EOS % 2.5 % (0-6); HEMATOCRIT 36.6 % (42.0-52.0); HEMOGLOBIN 11.8 gm/dl (14.0-18.0); MEAN CELL VOLUME 95.3 fl (81-97); MEAN CORPUSCULAR HEMOGLOBIN 30.7 pg (27-33); MEAN CORPUSCULAR HGB CONC 32.2 g/dl (32-36); MEAN PLATELET VOLUME 10.9 fl (7.4-10.4); MONO % 8.4 % (0-9); PLATELET COUNT 298 K/uL (130-400); RED BLOOD COUNT 3.84 M/uL (4.40-5.70); WHITE BLOOD COUNT W/O DIFF 10.6 K/uL (4.2-12.2)
[2017-09-27 16:24] LABS: INR 1.1; PARTIAL THROMBOPLASTIN TIME 19.4 SECONDS (24.5-39.1); PROTHROMBIN TIME (PATIENT) 11.4 SECONDS (9.5-12.1)
[2017-09-27 16:25] LABS: BLOOD UREA NITROGEN 15 mg/dL (8-23); CREATININE 0.7 mg/dL (0.7-1.2); EST GLOMERULAR FILTRATION RATE > 60 mL/min
[2017-09-27 16:28] LABS: GLUCOSE,RANDOM 108 mg/dL (74-109)
[2017-09-27 16:31] LABS: CREATINE PHOSPHOKINASE 48 U/L (39-308)
[2017-09-27] MEDS ORDERED: 0.9 % SODIUM CHLORIDE 1,000 ML BAG IV ONE (16:34)
[2017-09-27 16:58] LABS: CKMB 3.2 ng/mL (<6.73)
[2017-09-27] MEDS ORDERED: FUROSEMIDE IV 40MG/4ML VIAL IVP ONE (16:59)
[2017-09-27 17:05] LABS: THYROID STIMULATING HORMONE 1.55 uIU/mL (0.270-4.20)
[2017-09-27 17:54] LABS: URINE APPEARANCE CLEAR; URINE BILIRUBIN NEGATIVE (NEGATIVE); URINE BLOOD NEGATIVE (NEGATIVE); URINE COLOR YELLOW; URINE GLUCOSE (UA) NEGATIVE (NEGATIVE); URINE KETONE NEGATIVE (NEGATIVE); URINE LEUKOCYTE ESTERASE SMALL (NEGATIVE); URINE NITRITE POSITIVE (NEGATIVE); URINE PROTEIN TRACE (NEGATIVE); URINE UROBILINOGEN 0.2 E.U./dL (0.20 - 1.00)
[2017-09-27 18:02] LABS: URINE BACTERIA FEW; URINE EPITHELIAL CELLS 0 - 2 (FEW); URINE RBC 0 - 2 (NONE SEEN)
[2017-09-27] MEDS ORDERED: ACETAMINOPHEN 325 MG TAB PO PRN (18:42)
[2017-09-27] MEDS: ASPIRIN 325 MG TAB ENTERIC-COATED PO SCH (20:07)
[2017-09-27 22:13] LABS: CKMB 3.2 ng/mL (<6.73)
[2017-09-28 06:34] LABS: CKMB 3.2 ng/mL (<6.73)
--- NOTE | 2017-09-28 07:21 | RADIOLOGY REPORT ---
EXAM: CHEST, TWO VIEWS HISTORY: DIFFICULTY IN BREATHING. PATIENT STATES DOES NOT FEEL RIGHT. TECHNIQUE: Upright AP and lateral views of the chest were obtained. Comparison: Two view chest radiographic examination dated 06/21/17 at 13:11. FINDINGS: The cardio-pericardial silhouette remains enlarged though slightly more pronounced in the interval. There is new pulmonary venous hypertension. Mixed primarily reticular opacities are scattered in each lung most pronounced in the perihilar and basilar portions. The posterior costophrenic angles are mildly blunted and there is probably a new small amount of fluid within the minor fissure. These findings are suspicious for fluid overload/CHF. The lung findings could also relate to pneumonitis. There are degenerative changes of the visualized spine and shoulder girdles. IMPRESSION: CARDIOMEGALY MORE PRONOUNCED IN THE INTERVAL WITH NEW PULMONARY VENOUS HYPERTENSION, PRESUMED BILATERAL INTERSTITIAL EDEMA, AND SMALL PLEURAL EFFUSIONS CONSISTENT WITH FLUID OVERLOAD/CHF. THE LUNG FINDINGS COULD ALSO RELATE TO PNEUMONITIS. JOB NUMBER: [id number] [facility]
--- NOTE | 2017-09-28 07:35 | CT SCAN REPORT ---
EXAM: CT OF THE HEAD WITHOUT CONTRAST HISTORY: ALTERED LEVEL OF CONSCIOUSNESS FOR ONE DAY. TECHNIQUE: CT of the head without contrast was obtained. Comparison: CT of the head without contrast dated 08/12/17. FINDINGS: Moderate dilatation of the subarachnoid spaces is redemonstrated associated with mild ventriculomegaly. Moderate periventricular and subcortical white matter lucencies are scattered in each cerebral hemisphere. These are nonspecific though likely areas of chronic small vessel ischemia. There is a focal area of CSF like density centered in the genu of the left internal capsule measuring 8 mm in maximum diameter. This is unchanged and is consistent with an old lacunar infarct. There is extension of this infarct into the globus pallidus. There is redemonstration of hypodensity with volume loss involving the medial aspect of the left occipital lobe and the left aspect of the corpus callosum splenium consistent with old infarct. No definite new area of abnormally increased or decreased attenuation is noted throughout the brain substance. No new abnormal extraaxial fluid collection is seen. There is a retention cyst in the floor of the right maxillary sinus and probable tiny retention cyst in the inferolateral left maxillary sinus, stable. There is periapical lucency noted involving several maxillary teeth consistent with dental disease. IMPRESSION: 1. NO CT EVIDENCE OF ACUTE MAJOR VESSEL INFARCT, INTRACRANIAL HEMORRHAGE, NOR MASS WITHOUT SIGNIFICANT CHANGE IN APPEARANCE OF THE BRAIN SINCE 08/12/17. 2. GENERALIZED ATROPHY WITH MILD VENTRICULOMEGALY. 3. LEFT OCCIPITAL INFARCT REDEMONSTRATED WELL A LACUNAR INFARCT CENTERED IN THE GENU OF THE LEFT INTERNAL CAPSULE. 4. WHITE MATTER LUCENCIES SCATTERED IN EACH CEREBRAL HEMISPHERE ARE NONSPECIFIC , BUT LIKELY AREAS OF CHRONIC SMALL VESSEL ISCHEMIA. 5. RETENTION CYSTS REDEMONSTRATED WITHIN THE MAXILLARY SINUSES. 6. PERIAPICAL LUCENCIES INVOLVING SEVERAL MAXILLARY TEETH CONSISTENT WITH ADVANCED DENTAL DISEASE. JOB NUMBER: [id number] [facility]
[2017-09-28] MEDS: LEVEMIR FLEXTOUCH 100 UNIT/ML INSULIN PEN SQ SCH (09:07)
[2017-09-28] MEDS: ASPIRIN 325 MG TAB ENTERIC-COATED PO SCH (09:07)
[2017-09-28] MEDS: CLOPIDOGREL 75MG TABLET PO SCH (09:10)
[2017-09-28] MEDS: METOPROLOL SUCC 50 MG TABLET PO SCH (09:10)
[2017-09-28] MEDS: ATORVASTATIN 20 MG TABLET PO SCH (09:10)
[2017-09-28] MEDS ORDERED: UBIDECARENONE 100 MG PO SCH (10:00)
[2017-09-28] MEDS ORDERED: FUROSEMIDE IV 40MG/4ML VIAL IVP SCH (10:00)
[2017-09-28] MEDS ORDERED: ASPIRIN 325 MG TAB ENTERIC-COATED PO SCH (10:00)
[2017-09-28] MEDS ORDERED: HYDROCHLOROTHIAZIDE 12.5 MG CAPSULE PO SCH (10:00)
[2017-09-28] MEDS ORDERED: ENOXAPARIN 40 MG/0.4 ML SYR SQ SCH (13:00)
[2017-09-28] MEDS: ENOXAPARIN 100 MG/ML SYR SQ SCH ×2 (13:53→21:41)
[2017-09-29 06:25] LABS: BLOOD UREA NITROGEN 19 mg/dL (8-23); CREATININE 0.8 mg/dL (0.7-1.2); EST GLOMERULAR FILTRATION RATE > 60 mL/min; GLUCOSE,RANDOM 122 mg/dL (74-109)
--- NOTE | 2017-09-29 09:30 | History and Physical Report ---
DATE OF ADMISSION: 09/27/2017 CHIEF COMPLAINT: The patient states he is not feeling well, short of breath, some increased confusion. Approximately 2 months ago, he had a heart catheterization with 2 stents placed. He did have a low ejection fraction which normalized at [facility] and he had a normal ejection fraction at that time. He was evaluated in the emergency department by Dr. Andrews with troponin T being elevated slightly. He is admitted to the hospital for serial cardiac enzymes, serial EKGs and further evaluation. He talked to Dr. Peña a railroad inspector at [facility] and he felt diuresing and serial enzymes, because his EKG showed no acute changes. HISTORY OF PRESENT ILLNESS: The patient did deny headache, chest pain or shortness of breath but his respiratory rate was slightly labored and his chest x-ray showing CHF with cardiomegaly. PAST MEDICAL HISTORY: He has coronary artery disease with 2 stents placed in August of 2017 at [facility]. Dr. Marcia Morocho is his primary railroad inspector. He also has diabetes mellitus, hypertension, left inguinal hernia which he did not want repaired. He is also legally blind from macular degeneration and he has had a CVA in June of 2017 with some aphasia, and he has some memory issues from that. PAST SURGICAL HISTORY: Left thumb surgery, 2 cardiac stents August of 2017. MEDICATIONS: 1. Co-Q10 100 mg daily. 2. Metoprolol/hydrochlorothiazide 100/12.5, 1 daily. 3. Levemir 6 units daily. 4. Plavix 75 mg daily. 5. Lipitor 20 mg daily. 6. Aspirin 325 daily. ALLERGIES: No known drug allergies. FAMILY/PSYCHOSOCIAL HISTORY: Unremarkable. Never smoked. No alcohol or drug use. REVIEW OF SYSTEMS: HEENT: No upper respiratory infection symptoms, cough, cold or congestion. Cardiovascular: See chief complaint. He has coronary artery disease with stents. He had CHF on his chest x-ray, cardiomegaly. He has a heart murmur with aortic stenosis, moderate. Respiratory: See chief complaint. He is short of breath with exertion. Gastrointestinal: No nausea, vomiting, diarrhea, black stools or bloody stools. Genitourinary: No dysuria, hematuria, frequency or burning on urination. Musculoskeletal: He has osteoarthritis but he ambulates well from the bathroom to the bed and around the room. Neurologic: He had a previous CVA in June of 2017. Endocrine: He does have diabetes mellitus and uses insulin. Integument: No rash, ulcers, change in moles or yellow skin. PHYSICAL EXAMINATION: VITALS: Height is documented in the chart, 5 feet 8. Weight today was 204. It was 210 yesterday before the Lasix. Currently, pulse 72, blood pressure 135/70, respiratory rate 16, pulse 52, pulse ox 98% on room air. Temperature is 97.7. HEENT: Pupils are equal, round, and reactive to light and accommodation. Extraocular muscles are intact. Throat is clear. Nose is clear. Tympanic membranes are galaviz. NECK: Supple. No jugular venous distention. No hepatojugular reflux. No carotid bruits. CARDIOVASCULAR: Regular rate and rhythm with a systolic murmur. RESPIRATORY: Rales in posterior bases. ABDOMEN: Soft, nontender. No hepatosplenomegaly, no masses, no tenderness. Bowel sounds are active. EXTREMITIES: No pitting edema. BREASTS: Normal male breasts. RECTAL: Deferred. GENITALIA: Deferred. NEUROLOGIC: Cranial nerves II-XII intact. No gross defects. Sensation normal. Strength normal. Deep tendon reflexes equal bilaterally. Babinski is negative. MENTAL STATUS: He is alert but disoriented to time, oriented to place and person. IMPRESSION: 1. Non-ST myocardial infarction. 2. Systolic murmur. 3. Congestive heart failure. 4. Old cerebrovascular accident. 5. Early dementia. PLAN: Diuresis with Lasix. Consult Cardiology again to see if there are any other recommendations. His serial cardiac enzymes went up to 0.166. CK-MB stayed normal. His EKG is showing no acute changes and bradycardia. INPATIENT CERTIFICATION: Admit to inpatient care. Based on my medical assessment , after consideration of patient's risk factors, age, comorbidities, and patient 's presenting symptoms and acuity, I expect that this patient will remain in the hospital greater than or equal to 2 midnights and that the services needed warrant inpatient care because of non-ST elevated UT. Estimated length of stay is 3 days. The patient may reasonably be expected to be discharged or transferred to a hospital within 96 hours after admission to [facility]. Services needed are cardiac monitoring, IV diuresis. I certify that my determination is in accordance with my understanding of Medicare requirements for reasonable and necessary inpatient services. [facility]
[2017-09-29] MEDS: LEVEMIR FLEXTOUCH 100 UNIT/ML INSULIN PEN SQ SCH (10:05)
[2017-09-29] MEDS: ENOXAPARIN 100 MG/ML SYR SQ SCH ×2 (10:07→22:02)
[2017-09-29] MEDS: METOPROLOL SUCC 50 MG TABLET PO SCH (10:07)
[2017-09-29] MEDS: CLOPIDOGREL 75MG TABLET PO SCH (10:07)
[2017-09-29] MEDS: ASPIRIN 325 MG TAB ENTERIC-COATED PO SCH (10:07)
[2017-09-29] MEDS: ATORVASTATIN 20 MG TABLET PO SCH (10:08)
[2017-09-29] MEDS: FUROSEMIDE 40 MG TABLET PO SCH (10:08)
[2017-09-29] MEDS: POTASSIUM CHLORIDE 10 MEQ TAB PO SCH (17:11)
--- NOTE | 2017-09-30 07:53 | Discharge Note ---
VTE H&P Assessment - Risk for VTE Risk for VTE: Yes Risk Level: Moderate Risk Assessment Date: 09/28/17 Risk Assessment Time: 08:30 VTE Orders Placed or Will Be Placed: Yes Discharge Medications - Discharge Medications Prescriptions: Furosemide [Lasix] 40 mg PO DAILY #30 tablet Lisinopril [Zestril] 5 mg PO DAILY #30 tablet Metoprolol Succinate [Toprol Xl] 100 mg PO DAILY #30 tab.er.24h Potassium Chloride [Klor-Con] 10 meq PO DAILY #30 tablet.sa Home Medications: Ambulatory Orders Atorvastatin Calcium [Lipitor] 20 mg PO DAILY 07/01/17 [Last Taken 09/27/17] Insulin Detemir [Levemir] 6 units SQ DAILY 07/01/17 [Last Taken 09/27/17] Aspirin [Aspirin EC] 325 mg PO DAILY #60 tablet. 07/04/17 [Last Taken 09/27/17 ] Ubidecarenone [Coq-10] 100 mg PO DAILY 08/12/17 [Last Taken 09/27/17] Clopidogrel Bisulfate [Plavix] 75 mg PO DAILY 09/27/17 [Last Taken 09/27/17] Acetaminophen [Tylenol 325Mg] 650 mg PO Q6H PRN tablet 09/30/17 [Last Taken Unknown] Aspirin Enteric-Coated [Ecotrin (EC)] 325 mg PO DAILY tabec 09/30/17 [Last Taken Unknown] Furosemide [Lasix] 40 mg PO DAILY #30 tablet 09/30/17 [Last Taken Unknown] Lisinopril [Zestril] 5 mg PO DAILY #30 tablet 09/30/17 [Last Taken Unknown] Metoprolol Succinate [Toprol Xl] 100 mg PO DAILY #30 tab.er.24h 09/30/17 [Last Taken Unknown] Potassium Chloride [Klor-Con] 10 meq PO DAILY #30 tablet.sa 09/30/17 [Last Taken Unknown] Discharge Note - Date Date of Discharge Note: 09/30/17 Condition: (2) Stable Instructions: Myocardial Infarction (GEN), Heart Failure (GEN), Low-Sodium Diet (GEN), Fluid Restriction (GEN) Additional Instructions: Weigh daily and report any daily weight gain of more than 5 lbs to your provider. Watch fluid intake, and restrict fluids to being 2 liters or 64 ounces per day. Please keep sodium intake to a minimum by avoiding foods that are high in sodium and avoid adding salt to foods. Follow up with Dr. Myles on October 03 at 10 AM Schedule Echo outpatient with Dr. Anita Morocho's group Patient will need to See Dr. Anita Morocho in 2 weeks New meds Lasix 40 mg one a day potassium 10 mg one a day lisinopril 5 mg one a day Change toprol xl/ HCTZ to plain toprol XL 100 mg one a day without HCTZ in it so needs a new script Bring all pill bottles to the office so can make sure he is taking the correct medication Continue all his other medications Prescriptions: Furosemide [Lasix] 40 mg PO DAILY #30 tablet Lisinopril [Zestril] 5 mg PO DAILY #30 tablet Metoprolol Succinate [Toprol Xl] 100 mg PO DAILY #30 tab.er.24h Potassium Chloride [Klor-Con] 10 meq PO DAILY #30 tablet. Referrals: Brandyn yMles D.O. [Primary Care Provider] - Forms: Patient Portal Access Activity at Discharge: Increase Activity as Tolerated
[2017-09-30 08:43] LABS: BLOOD UREA NITROGEN 19 mg/dL (8-23); CREATININE 0.7 mg/dL (0.7-1.2); EST GLOMERULAR FILTRATION RATE > 60 mL/min; GLUCOSE,RANDOM 125 mg/dL (74-109)
[2017-09-30] MEDS: POTASSIUM CHLORIDE 10 MEQ TAB PO SCH (09:03)
[2017-09-30] MEDS: ATORVASTATIN 20 MG TABLET PO SCH (09:03)
[2017-09-30] MEDS: FUROSEMIDE 40 MG TABLET PO SCH (09:03)
[2017-09-30] MEDS: ASPIRIN 325 MG TAB ENTERIC-COATED PO SCH (09:04)
[2017-09-30] MEDS: METOPROLOL SUCC 50 MG TABLET PO SCH (09:04)
[2017-09-30] MEDS: CLOPIDOGREL 75MG TABLET PO SCH (09:04)
[2017-09-30] MEDS: LEVEMIR FLEXTOUCH 100 UNIT/ML INSULIN PEN SQ SCH (09:05)
[2017-09-30] MEDS ORDERED: LISINOPRIL 5 MG TABLET PO SCH (10:00)
--- NOTE | 2017-09-30 11:18 | Discharge Summary ---
DATE OF DISCHARGE: 09/30/2017 at 8:00 a.m. DATE OF ADMISSION: 09/27/2017. DISCHARGE DIAGNOSES: 1. NON-ST ELEVATION MYOCARDIAL INFARCTION. 2. CONGESTIVE HEART FAILURE. 3. SYSTOLIC MURMUR. 4. AORTIC STENOSIS, MODERATE. 5. CARDIOMYOPATHY. 6. OLD CEREBROVASCULAR ACCIDENT. 7. MILD DEMENTIA. 8. STATUS POST HYPERCHOLESTEROLEMIA. 9. STATUS POST DIABETES MELLITUS. 10. 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 HIS PAPER SHEETER IS DR. Marcia AVSQUEZ. ATTENDING PHYSICIAN: Brandyn Myles D.O. REASON FOR HOSPITALIZATION: This patient stated he is not feeling well with shortness of breath and some increased confusion. Approximately two months ago he had a heart catheterization with two stents place. He did have a low ejection fraction which normalized at [facility]. He had a normal ejection fraction at that time. He was evaluated in the emergency department by Dr. Andrews with troponin T being elevated. He was admitted to the hospital for serial cardiac enzymes, serial EKGs, and further evaluation. Dr. Andrews talked with Dr. Peña, the supervisor enrobing at [facility], who felt diuresis and serial enzymes was the way to go at this point. His EKG showed no acute changes. SIGNIFICANT FINDINGS FROM EXAMINATION: Laboratory: His cardiac enzymes continued to go up. Initially in the emergency department they were 0.109. They went up to a maximum of 0.166. They came down to 0.102 on 09/29/2017. His brain natriuretic peptide was elevated at 13,657. TSH was 155. CKMBs were normal at three time points. BUN was 15, creatinine was 0.7. Potassium on discharge is pending, but yesterday it was 3.8. His white blood cell count was 10,600. Hemoglobin was 11.8. PT INR was 1.1. DIAGNOSTIC STUDIES: EKG showed no acute changes and bradycardia. His chest x-ray showed cardiomegaly, more pronounced in the interval with new pulmonary venous hypertension, presumed bilateral interstitial edema, and small pleural effusions consistent with fluid overload and congestive heart failure. The lung findings could also relate to pneumonitis. His head CT showed no CT evidence of acute major vessel infarction, intracranial hemorrhage, or mass without significant change in appearance of the brain since 08/12/2017. Generalized atrophy and mild ventriculomegaly. Left occipital infarct redemonstrated as well as a lacunar infarct centered in the genu of left internal capsule. White matter lucencies scattered in each cerebral hemisphere are nonspecific but are likely areas of chronic small- vessel ischemia. Retention cyst is redemonstrated within the maxillary sinus. Periapical lucency as well as seven maxillary teeth consistent with advanced dental disease. Rhythm strips were unremarkable. Normal sinus rhythm, bradycardia consistent with his metoprolol use. He had two EKGs which showed no acute ST T-wave changes, bradycardia, and normal sinus rhythm. HOSPITAL COURSE: When he came into the hospital his weight was 210 pounds. On discharge it was 201 pounds. He diuresed nicely 9 pounds, and he was breathing much better. THERAPY PROVIDED: He was started on intravenous Lasix twice a day, 40 mg. He then went to oral Lasix 40 mg once a day with oral potassium. We added lisinopril 5.0 mg once a day. We kept the metoprolol going and kept the Plavix and aspirin going. During the hospitalization the patient was on Lovenox 1.0 mg per kg b.i.d. I had a phone consultation with Dr. Marcia Vasquez, and he felt diuresis and conservative therapy would be the best treatment plan at this time. He will follow up with the patient as an outpatient in two weeks. Will also schedule an outpatient echocardiogram. CONDITION AT DISCHARGE: Much improved. The patient gradually improved. DISCHARGE INSTRUCTIONS: 1. Follow up with Dr. Myles on October 03, 2017, Monday at 10:00 a.m. 2. Continue Lasix 40 mg q. daily. Continue potassium 10 mEq daily. New medication with lisinopril 5.0 mg q. daily. Aspirin 325 mg q. daily. Continue Levemir 6.0 units q. a.m., Lipitor 20 mg q. daily, Plavix 75 mg q. daily, Toprol -XL 100 mg q. daily. We will switch him off the Toprol-XL/hydrochlorothiazide to plain Toprol because he is taking the Lasix at this time. Continue the Lasix 40 mg q. daily, potassium 10 mEq q. daily. Will start back his CoQ 10 at 100 mg once a day. 3. Avoid salt and watch his weight. If it goes up 5 pounds in 24 hours, call Dr. Myles's office. Increase activity as tolerated. 4. Will have him follow up with Dr. Marcia Vasquez in two weeks. 5. I also requested that he bring his pill bottles to the office so we can make sure there is no confusion about his medications; especially the metoprolol with going to a straight metoprolol-XL 100 mg today from his metoprolol HCTZ which he has at home. JOB NUMBER: [id number] MTDD
== END 2017-09-30 09:15 | disposition home or self-care (01) | DRG 281 ==
LOC: ER 15:24 → MEDSURG 18:05
PROVIDERS: ADMIT Emergency Medicine; ATTEND Emergency Medicine
DX: I50.9 Heart failure, unspecified (principal); R09.02 Hypoxemia; I21.4 Non-ST elevation (NSTEMI) myocardial infarction; I42.9 Cardiomyopathy, unspecified; I25.10 Atherosclerotic heart disease of native coronary artery without angina pectoris; R01.1 Cardiac murmur, unspecified; Z86.73 Personal history of transient ischemic attack (TIA), and cerebral infarction without residual deficits; I35.0 Nonrheumatic aortic (valve) stenosis; F03.90 Unspecified dementia, unspecified severity, without behavioral disturbance, psychotic disturbance, mood disturbance, and anxiety; I10 Essential (primary) hypertension; E11.9 Type 2 diabetes mellitus without complications; Z79.4 Long term (current) use of insulin; M19.90 Unspecified osteoarthritis, unspecified site
CPT/HCPCS: 36416; 70450; 71046; 80048; 81001; 82550; 82553; 82948; 83880; 84443; 84484; 85025; 85610; 85730; 93005; 93010; 94761; 96374; 99285; J1650; J1940; J7030

== ENCOUNTER 2017-10-07 09:52 | Emergency (ER) | payer MEDICARE, MEDICAID ==
--- NOTE | 2017-10-07 10:43 | Emergency Department Record ---
History of Present Illness - General Chief Complaint: Fall Injury Stated Complaint: FALL INJURY Time Seen by Provider: 10/07/17 10:11 Source: Patient, Family Mode of Arrival: Ambulatory Limitations: Altered mental status - History of Present Illness Initial Comments: pt had an unwitnessed fall 4 days ago and c/o head pain, l shoulder pain and neck pain. pt is unsure how he fell as he has short term memory loss MD Complaint: Fall Onset/Timin -: Days(s) Fall From: Standing When Fall Occurred: # Days PRIMARY CLINICIAN Fall Witnessed: No Place Fall Occurred: Home Loss of Consciousness: None Prolonged Down Time?: Unclear Location: Head, Neck Location - Extremities: Left: Shoulder Severity: Moderate Severity scale (1-10): 10 Quality: Aching Associated Symptoms: Denies - Jeny Coma Scale Eye Response: (4) Open spontaneously Motor Response: (6) Obeys commands Verbal Response: (5) Oriented Farner Total: 15 - Related Data Previous Rx's Medication Instructions Recorded Aspirin [Aspirin EC] 325 mg PO DAILY #60 tablet.dr 07/04/17 Acetaminophen [Tylenol 325Mg] 650 mg PO Q6H PRN tablet 09/30/17 Aspirin Enteric-Coated [Ecotrin 325 mg PO DAILY tabec 09/30/17 (EC)] Furosemide [Lasix] 40 mg PO DAILY #30 tablet 09/30/17 Lisinopril [Zestril] 5 mg PO DAILY #30 tablet 09/30/17 Metoprolol Succinate [Toprol Xl] 100 mg PO DAILY #30 tab.er.24h 09/30/17 Potassium Chloride [Klor-Con] 10 meq PO DAILY #30 tablet.sa 09/30/17 Allergies Allergy/AdvReac Type Severity Reaction Status Date / Time No Known Drug Allergies Allergy Verified 10/07/17 10:04 Travel Screening - Travel/Exposure Within Last 30 Days Have you traveled within the last 30 days?: No - Travel/Exposure Within Last Year Have you traveled outside the [place] in the last year?: No - Additonal Travel Details Have you been exposed to anyone with a communicable illness?: No - Travel Symptoms Symptom Screening: None Review of Systems Reviewed: No additional complaints except as noted below Constitutional: Reports: As per HPI. Denies: Chills, Fever, Malaise, Night sweats, Weakness, Weight change Eyes: Reports: As per HPI. Denies: Eye discharge, Eye pain, Photophobia, Vision change ENT: Reports: As per HPI. Denies: Congestion, Dental pain, Ear pain, Epistaxis , Hearing loss, Throat pain Respiratory: Reports: As per HPI. Denies: Cough, Dyspnea, Hemoptysis, Stridor, Wheezes Cardiovascular: Reports: As per HPI. Denies: Arrhythmia, Chest pain, Dyspnea on exertion, Edema, Murmurs, Orthopnea, Palpitations, Paroxysmal nocturnal dyspnea, Rheumatic Fever, Syncope Endocrine: Reports: As per HPI. Denies: Fatigue, Heat or cold intolerance, Polydipsia, Polyuria Gastrointestinal: Reports: As per HPI. Denies: Abdominal pain, Constipation, Diarrhea, Hematemesis, Hematochezia, Melena, Nausea, Vomiting Genitourinary: Reports: As per HPI. Denies: Dysuria, Frequency, Hematuria, Incontinence, Retention, Testicular pain, Testicular mass, Urgency Musculoskeletal: Reports: As per HPI. Denies: Arthralgia, Back pain, Gout, Joint swelling, Myalgia, Neck pain Skin: Reports: As per HPI. Denies: Bruising, Change in color, Change in hair/ nails, Lesions, Pruritus, Rash Neurological: Reports: As per HPI, Confusion. Denies: Abnormal gait, Headache, Numbness, Paresthesias, Seizure, Tingling, Tremors, Vertigo, Weakness Psychiatric: Reports: As per HPI. Denies: Anxiety, Auditory hallucinations, Depression, Homicidal thoughts, Suicidal thoughts, Visual hallucinations Hematological/Lymphatic: Reports: As per HPI. 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 minor residuals) Hx TIA: Yes Comment:: confusion - GI Hx GI Disorders: No Comment:: rt umbilical hernia - Hx Genitourinary Disorders: No Hx UTI: Yes Comment:: history uti - ENDOCRINE Hx Diabetes: Yes (takes levemir 6 units q am) Hx Thyroid Disease: No - MUSCULOSKELETAL Hx Arthritis: Yes - PSYCH Hx Psych Problems: No - HEMATOLOGY/ONCOLOGY Hx Hematology/Oncology Disorders: No Family Medical History Any Significant Family History?: Yes Family Hx Comment (NOT TO BE USED IN PLACE OF ITEMS BELOW): Pt confused Physical Exam - General General Appearance: Alert, Oriented x3, Cooperative, Mild distress - Head Head exam: Normal inspection Head exam detail: Contusion, Hematoma - Eye Eye exam: Normal appearance, PERRL, EOMI Pupils: Normal accommodation - ENT ENT exam: Normal exam, Mucous membranes moist, Normal external ear exam, Normal orophraynx Ear exam: Normal external inspection. negative: External canal tenderness Nasal Exam: Normal inspection. negative: Discharge, Sinus tenderness Mouth exam: Normal external inspection, Tongue normal Teeth exam: Normal inspection. negative: Dental caries Throat exam: Normal inspection. negative: Tonsillar erythema, Tonsillar exudate - Neck Neck exam: Normal inspection, Full ROM. negative: Tenderness - Respiratory Respiratory exam: Normal lung sounds bilaterally. negative: Respiratory distress - Cardiovascular Cardiovascular Exam: Regular rate, Normal rhythm, Normal heart sounds - GI/Abdominal GI/Abdominal exam: Soft, Normal bowel sounds. negative: Tenderness - Rectal Rectal exam: Deferred - exam: Deferred - Extremities Extremities exam: Normal inspection, Full ROM, Normal capillary refill. negative: Tenderness Image of Full Body: 1 - ecchymosis 2 - ecchymosis 3 - ecchymosis 4 - ecchymosis - Back Back exam: Reports: Normal inspection, Full ROM. Denies: Muscle spasm, Rash noted, Tenderness - Neurological Neurological exam: Alert, CN II-XII intact, Normal gait, Oriented X3 - Psychiatric Psychiatric exam: Normal affect, Normal mood - Skin Skin exam: Abrasion, Dry, Intact, Normal color, Warm Distribution of rash: Head, LUE, RLE, LLE Course Vital Signs 10/07/17 09:55 Blood Pressure 139/82 Disposition Disposition: Discharge Clinical Impression: Multiple contusions Disposition: Home, Self-Care Condition: (1) Good Instructions: Fall Prevention for Older Adults (ED), Contusion in Adults (ED) Additional Instructions: follow up with family doctor. return sooner if worse. tylenol as needed for pain Forms: Patient Portal Access Quality - Quality Measures Quality Measures: N/A - Blood Pressure Screening Does Patient Have Any of the Following: No Blood Pressure Classification: Pre-Hypertensive BP Reading Systolic Measurement: 139 Diastolic Measurement: 82 Screening for High Blood Pressure: < Pre-Hypertensive BP, F/U Documented > [ G8950] Pre-Hypertensive Follow-up Interventions: Follow-up with rescreen every year.
[2017-10-07] MEDS: ACETAMINOPHEN 325 MG TAB PO ONE (11:54)
--- NOTE | 2017-10-08 22:01 | CT SCAN REPORT ---
EXAM: CT SCAN HEAD WO CONTRAST HISTORY: TRAUMA FIVE DAYS AGO. TECHNIQUE: Helical CT scan of the brain obtained without intravenous contrast with coronal and sagittal reformatted images. COMPARISON: CT head 09/27/2017. HAND DOMINANCE: Left. FINDINGS: No evidence of hemorrhage, extraaxial fluid collection. Severe periventricular and deep white matter low-density changes are again seen, consistent with chronic microvascular ischemic disease. A lacunar infarction is again seen in the genu of the left internal capsule. Left occipital infarction with encephalomalacia again noted. The ventricles are stable in size. No mass effect or midline shift. Calvarium is intact. Paranasal sinuses show mucosal thickening of both maxillary sinuses. No fractures. IMPRESSION: 1. NO ACUTE INTRACRANIAL ABNORMALITY. 2. REGIONS OF PRIOR ISCHEMIA ARE SIMILAR TO THE CT FROM 09/27/2017. JOB NUMBER: [id number] MTDD
--- NOTE | 2017-10-08 22:06 | RADIOLOGY REPORT ---
EXAM: SHOULDER, LEFT HISTORY: TRAUMA. TECHNIQUE: Three views of the left shoulder. COMPARISON: Chest x-ray 09/27/17. ENCOUNTER: Initial. FINDINGS: No fracture or malalignment of the left shoulder. The lung abnormalities are similar to previous exam. JOB NUMBER: [id number] MTDD
--- NOTE | 2017-10-08 22:11 | CT SCAN REPORT ---
EXAM: CT SCAN CERVICAL SPINE WO CONTRAST HISTORY: INJURY. TECHNIQUE: Helical CT scan of the cervical spine obtained without intravenous contrast. Sagittal and coronary reformatted images obtained. COMPARISON: None. FINDINGS: Sagittal reformatted images of the cervical spine show normal alignment of the cervical vertebral bodies. Vertebral body heights are maintained. Mild multilevel disc space narrowing. There is mild scoliosis seen on the coronal images as well as facet hypertrophy, left more than right. Axial images show no fractures. No soft tissue abnormality. No prevertebral soft tissue swelling. IMPRESSION: MILD DEGENERATIVE CHANGES OF THE CERVICAL SPINE. NO EVIDENCE OF ACUTE FRACTURE OR MALALIGNMENT. JOB NUMBER: [id number] [facility]
== END 2017-10-07 12:13 | disposition home or self-care (01) ==
LOC: ER 09:52
DX: S00.83XA Contusion of other part of head, initial encounter (principal); S19.9XXA Unspecified injury of neck, initial encounter; S80.02XA Contusion of left knee, initial encounter; S80.01XA Contusion of right knee, initial encounter; S50.02XA Contusion of left elbow, initial encounter; M25.512 Pain in left shoulder; R51 Headache; I69.351 Hemiplegia and hemiparesis following cerebral infarction affecting right dominant side; I50.9 Heart failure, unspecified; E11.9 Type 2 diabetes mellitus without complications; I10 Essential (primary) hypertension; R41.3 Other amnesia; Z79.4 Long term (current) use of insulin; W19.XXXA Unspecified fall, initial encounter; Y92.009 Unspecified place in unspecified non-institutional (private) residence as the place of occurrence of the external cause
CPT/HCPCS: 70450; 72125; 99283; 99284

== ENCOUNTER 2017-10-17 16:47 | Emergency (ER) | payer MEDICARE, MEDICAID ==
--- NOTE | 2017-10-17 17:44 | Emergency Department Record ---
History of Present Illness - General Chief complaint: Weakness Stated complaint: WEAK, NOT EATING,ALTERED MENTAL STATE Time Seen by Provider: 10/17/17 17:24 Source: Patient, Family Mode of Arrival: Wheelchair Limitations: Altered mental status - History of Present Illness Initial comments: 77 yo male presents with a steady decline in his health since August per the family. He has had a stroke in June and then coronary stents placed in August. The patient has rapidly become more confused, stumbling, poor appetite, falls, agitated at times, shaky. The last week he is eating very little. He is now urinating and having bowel movements in his pants. No witnessed fall but the family has noted new bruising in different areas. He states his name but is unaware of his surroundings. He does not know he is in a hospital. He and his family saw Dr Myles today. The are concerned as his mental status and functional status have deteriorated this quickly. He had been very active including riding hid bike daily until June. MD Complaint: Generalized weakness Onset/Timin -: Week(s) Location: Generalized Consistency: Constant Improves with: None Worsens with: None Associated Symptoms: Denies other symptoms - [place] Coma Scale Eye Response: (3) Open to voice Motor Response: (6) Obeys commands Verbal Response: (4) Confused conversation Jeny Total: 13 - Related Data Previous Rx's Medication Instructions Recorded Aspirin [Aspirin EC] 325 mg PO DAILY #60 tablet. 07/04/17 Acetaminophen [Tylenol 325Mg] 650 mg PO Q6H PRN tablet 09/30/17 Aspirin Enteric-Coated [Ecotrin 325 mg PO DAILY tabec 09/30/17 (EC)] Furosemide [Lasix] 40 mg PO DAILY #30 tablet 09/30/17 Lisinopril [Zestril] 5 mg PO DAILY #30 tablet 09/30/17 Metoprolol Succinate [Toprol Xl] 100 mg PO DAILY #30 tab.er.24h 09/30/17 Potassium Chloride [Klor-Con] 10 meq PO DAILY #30 tablet.sa 09/30/17 Allergies Allergy/AdvReac Type Severity Reaction Status Date / Time No Known Drug Allergies Allergy Verified 10/17/17 17:17 Travel Screening - Travel/Exposure Within Last 30 Days Have you traveled within the last 30 days?: No - Travel/Exposure Within Last Year Have you traveled outside the [place] 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 minor residuals) Hx TIA: Yes Comment:: confusion - GI Hx GI Disorders: No Comment:: rt umbilical hernia - Hx Genitourinary Disorders: No Hx UTI: Yes Comment:: history uti - ENDOCRINE Hx Diabetes: Yes (takes levemir 6 units q am) Hx Thyroid Disease: No - MUSCULOSKELETAL Hx Arthritis: Yes - PSYCH Hx Psych Problems: No - HEMATOLOGY/ONCOLOGY Hx Hematology/Oncology Disorders: No Family Medical History Any Significant Family History?: No Family Hx Comment (NOT TO BE USED IN PLACE OF ITEMS BELOW): Pt confused Physical Exam - General General Appearance: Alert, No acute distress, Other (Oriented only to name, confused to conversation) Limitations: Altered mental status - Head Head exam: Atraumatic, Normocephalic, Normal inspection - Eye Eye exam: Normal appearance, PERRL, EOMI. negative: Conjunctival injection, Periorbital swelling, Scleral icterus - ENT ENT exam: Mucous membranes dry. negative: Normal exam, Normal orophraynx Ear exam: Normal external inspection Nasal Exam: Normal inspection. negative: Discharge, Dried blood, Sinus tenderness Mouth exam: Normal external inspection Teeth exam: Normal inspection Throat exam: Normal inspection. negative: Tonsillar erythema, Tonsillar exudate - Neck Neck exam: Normal inspection, Full ROM. negative: Lymphadenopathy, Meningismus , Tenderness - Respiratory Respiratory exam: Decreased breath sounds. negative: Accessory muscle use, Respiratory distress, Wheezes - Cardiovascular Cardiovascular Exam: Regular rate, Normal rhythm, Normal heart sounds Peripheral Pulses: 2+: Radial (R), Radial (L) - GI/Abdominal GI/Abdominal exam: Soft, Hernia (Mid abdomen, soft, non tender). negative: Tenderness - Rectal Rectal exam: Deferred - exam: negative: Circumcision - Extremities Extremities exam: Normal inspection, Full ROM, Normal capillary refill, Pedal edema. negative: Tenderness - Neurological Neurological exam: Abnormal gait, Altered, CN II-XII intact, Other (Word are understandable but he is confused. Knows his name. [place] negative: Oriented X3 - Psychiatric Psychiatric exam: Depressed, Other (sleeping, awakens to voice). negative: Anxious, Normal affect, Normal mood - Skin Skin exam: Dry, Intact, Normal color, Warm Course Vital Signs 10/17/17 17:18 Temperature 98.4 F Pulse Rate 85 Respiratory 24 Rate Blood Pressure 120/52 Pulse Ox 94 L - Reevaluation(s) Reevaluation #1: 10/17/17 17:45 Vitals reviewed. No acute changes 10/17/17 17:51 EMR reviewed from September Admission 10/17/17 17:53 EKG 1749 Sinus rhythm rate is 75, intervals normal, axis L, ST NS changes. 10/17/17 18:19 The CBC was reviewed. WBC count is 22. Hgb is 12 Temp is 99.9 oral. Will get rectal temp 10/17/17 18:50 The troponin is elevated to .23 10/17/17 18:58 The remaining results were signed out to Dr Hamm for review prior to admission Medical Decision Making - Lab Data Result diagrams: 10/17/17 18:00 10/17/17 18:00 Disposition Clinical Impression: Weakness, Fever Forms: Patient Portal Access Quality - Blood Pressure Screening Does Patient Have Any of the Following: No Blood Pressure Classification: Pre-Hypertensive BP Reading Systolic Measurement: 120 Diastolic Measurement: 52 Screening for High Blood Pressure: < Pre-Hypertensive BP, F/U Documented > [ G8950]
[2017-10-17 18:10] LABS: HEMATOCRIT 37.2 % (42.0-52.0); HEMOGLOBIN 12.2 gm/dl (14.0-18.0); MEAN CELL VOLUME 92.8 fl (81-97); MEAN CORPUSCULAR HEMOGLOBIN 30.4 pg (27-33); MEAN CORPUSCULAR HGB CONC 32.8 g/dl (32-36); MEAN PLATELET VOLUME 10.5 fl (7.4-10.4); PLATELET COUNT 320 K/uL (130-400); RED BLOOD COUNT 4.01 M/uL (4.40-5.70); RED CELL DISTRIBUTION WIDTH 14.3 % (11.5-14.5)
[2017-10-17 18:15] LABS: WHITE BLOOD COUNT W/O DIFF 22.3 K/uL (4.2-12.2)
[2017-10-17 18:21] LABS: BLOOD UREA NITROGEN 34 mg/dL (8-23); EST GLOMERULAR FILTRATION RATE > 60 mL/min; PLATELET ESTIMATE NORMAL (NORMAL)
[2017-10-17 18:24] LABS: GLUCOSE,RANDOM 139 mg/dL (74-109)
[2017-10-17 18:26] LABS: ALB/GLOB RATIO 0.8 (1.1-1.8); ALKALINE PHOSPHATASE 123 U/L (40-129); ALT/SGPT 19 U/L (<41); AST/SGOT 30 U/L (10.0-50.0); CREATINE PHOSPHOKINASE 19 U/L (39-308)
[2017-10-17 18:30] LABS: CKMB 1.4 ng/mL (<6.73)
[2017-10-17] MEDS ORDERED: ACETAMINOPHEN 1,000 MG/100 ML BTL IVPB ONE (18:32)
[2017-10-17] MEDS ORDERED: CEFTRIAXONE SODIUM 1 GM in 0.9 % SODIUM CHLORIDE 100ML 100 ML IVPB ONE (18:59)
[2017-10-17] MEDS ORDERED: LEVOFLOXACIN 250MG IVPB 250 MG/50 ML BAG IVPB ONE (19:42)
[2017-10-17] MEDS ORDERED: 0.9 % SODIUM CHLORIDE 1000ML 1,000 ML IV SCH (19:45)
[2017-10-17] MEDS ORDERED: LEVOFLOXACIN/D5W 750 MG/150 ML BAG IVPB ONE (19:48)
--- NOTE | 2017-10-17 19:49 | Emergency Department Record ---
History of Present Illness - General Chief complaint: Weakness Stated complaint: WEAK, NOT EATING,ALTERED MENTAL STATE Time Seen by Provider: 10/17/17 17:24 Source: Patient, Family Mode of Arrival: Wheelchair Limitations: Altered mental status - History of Present Illness MD Complaint: Generalized weakness Onset/Timin -: Week(s) Location: Generalized Consistency: Constant Improves with: None Worsens with: None Associated Symptoms: Denies other symptoms - [place] Coma Scale Eye Response: (3) Open to voice Motor Response: (6) Obeys commands Verbal Response: (4) Confused conversation Jeny Total: 13 - Related Data Previous Rx's Medication Instructions Recorded Aspirin [Aspirin EC] 325 mg PO DAILY #60 tablet.dr 07/04/17 Acetaminophen [Tylenol 325Mg] 650 mg PO Q6H PRN tablet 09/30/17 Aspirin Enteric-Coated [Ecotrin 325 mg PO DAILY tabec 09/30/17 (EC)] Furosemide [Lasix] 40 mg PO DAILY #30 tablet 09/30/17 Lisinopril [Zestril] 5 mg PO DAILY #30 tablet 09/30/17 Metoprolol Succinate [Toprol Xl] 100 mg PO DAILY #30 tab.er.24h 09/30/17 Potassium Chloride [Klor-Con] 10 meq PO DAILY #30 tablet.sa 09/30/17 Allergies Allergy/AdvReac Type Severity Reaction Status Date / Time No Known Drug Allergies Allergy Verified 10/17/17 17:17 Travel Screening - Travel/Exposure Within Last 30 Days Have you traveled within the last 30 days?: No - Travel/Exposure Within Last Year Have you traveled outside the [place] 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 Comment:: confusion - GI Hx GI Disorders: No Comment:: rt umbilical hernia - Hx Genitourinary Disorders: No Hx UTI: Yes Comment:: history uti - ENDOCRINE Hx Diabetes: Yes (takes levemir 6 units q am) Hx Thyroid Disease: No - MUSCULOSKELETAL Hx Arthritis: Yes - PSYCH Hx Psych Problems: No - HEMATOLOGY/ONCOLOGY Hx Hematology/Oncology Disorders: No Family Medical History Any Significant Family History?: No Family Hx Comment (NOT TO BE USED IN PLACE OF ITEMS BELOW): Pt confused Physical Exam - General Limitations: Altered mental status Course Vital Signs 10/17/17 10/17/17 10/17/17 17:18 18:12 18:30 Temperature 98.4 F 99.9 F H 103 F H Pulse Rate 85 Pulse Rate [ 82 Apical] Pulse Rate [ Biochemist ] Respiratory 24 24 Rate Blood Pressure 120/52 Blood Pressure 127/86 [Left Arm] Pulse Ox 94 L 96 10/17/17 10/17/17 18:38 19:20 Temperature 103 F H Pulse Rate Pulse Rate [ Apical] Pulse Rate [ 72 Biochemist ] Respiratory 20 Rate Blood Pressure Blood Pressure 91/44 [Left Arm] Pulse Ox 95 - Reevaluation(s) Reevaluation #1: 10/17/17 19:46 Labs reviewed, WBC 22.3, Troponin 0.24. Rocephin has nearly completed infusion. NS bolus ordered to infuse. Nursing staff has attempted small catheterization without success (appears to be curling up distally), condom catheter replaced. Levaquin was also ordered to infuse. CT Head: NAD Previous infarct occiptal region, basal ganglia, and thalmus. CXR: Negative Dr. Contreras paged to initiate transfer. Recent Vitals: 94/48, pulse 68, 96%RA, 99.1 temp. Reevaluation #2: 10/17/17 19:57 Case was discussed with Dr. Contreras, will accept transfer pending bed assignment. Patient and family were updated on all results and plan for transfer upon bed assignment. Medical Decision Making - Lab Data Result diagrams: 10/17/17 18:00 10/17/17 18:00 Lab Results 10/17/17 10/17/17 10/17/17 Range/Units 18:00 18:00 18:00 WBC 22.3 H* (4.2-12.2) K/uL RBC 4.01 L (4.40-5.70) M/uL Hgb 12.2 L (14.0-18.0) gm/dl Hct 37.2 L (42.0-52.0) % MCV 92.8 (81-97) fl MCH 30.4 (27-33) pg MCHC 32.8 (32-36) g/dl RDW 14.3 (11.5-14.5) % Plt Count 320 (130-400) K/uL MPV 10.5 H (7.4-10.4) fl Neutrophils % 87.0 H (47-80) % Band Neutrophils % 2.0 (0-5) % Eosinophils % Not Reportable Basophils % Not Reportable Lymphocytes 8.0 L (16-45) % Monocytes 3.0 (0-9) % Platelet Estimate Normal (NORMAL) RBC Morphology Normal Sodium 131 L (136-145) mmol/L Potassium 4.4 (3.4-4.5) mmol/L Chloride 93 L (98-107) mmol/L Carbon Dioxide 24.0 (22-29) mmol/L Anion Gap 14.0 (7-16) BUN 34 H (8-23) mg/dL Creatinine 1.0 (0.7-1.2) mg/dL Estimated GFR > 60 mL/min Random Glucose 139 H (74-109) mg/dL Calcium 8.8 (8.8-10.2) mg/dL Magnesium 2.1 (1.6-2.4) mg/dL Total Bilirubin 0.80 (0.2-1.0) mg/dL AST 30 (10.0-50.0) U/L ALT 19 (<41) U/L Alkaline Phosphatase 123 (40-129) U/L Creatine Kinase 19 L (39-308) U/L CK-MB (CK-2) 1.4 (<6.73) ng/mL Troponin T 0.230 H* (0-0.010) ng/mL NT-Pro-B Natriuret Pep 43384.00 H (<450) pg/mL Total Protein 7.0 (6.6-8.7) g/dL Albumin 3.0 L (4.0-5.0) g/dL Globulin 4.0 (1.4-4.8) gm/dL Albumin/Globulin Ratio 0.8 L (1.1-1.8) TSH 1.00 (0.270-4.20) uIU/mL Disposition Disposition: Transfer Clinical Impression: Weakness, Elevated troponin Fever Qualifiers: Fever type: unspecified Qualified Code(s): R50.9 - Fever, unspecified Sepsis Qualifiers: Sepsis type: sepsis due to unspecified organism Qualified Code(s): A41.9 - Sepsis, unspecified organism Disposition: Acute Care Hospital Transfer Transfer To: [facility] Reason For Transfer: Sepsis, elevated Troponin Accepting Physician: Ben Time Discussed w/Accepting Physician: 19:58 Condition: (3) Guarded Forms: Patient Portal Access Time of Disposition: 19:58 Quality - Quality Measures Quality Measures: N/A - Blood Pressure Screening Does Patient Have Any of the Following: Active Dx of HTN Blood Pressure Classification: Pre-Hypertensive BP Reading Systolic Measurement: 120 Diastolic Measurement: 52 Screening for High Blood Pressure: Patient Exclusion, Hx of HTN [[id number]]
--- NOTE | 2017-10-19 10:42 | CT SCAN REPORT ---
EXAM: CT OF THE BRAIN WITHOUT CONTRAST HISTORY: WEAKNESS. TECHNIQUE: Sequential axial images were obtained from the foramen magnum to the vertex without contrast administration. Comparison: 10/07/17. FINDINGS: There is a remote area of infarction in the left occipital lobe. There are small lacunar areas of infarction in the left thalamus and basal ganglia region. There is periventricular small vessel ischemia. No large territorial infarct, hemorrhage, mass effect, or midline shift. The orbits, paranasal sinuses, and mastoid air cells are normal. IMPRESSION: 1. NO ACUTE INTRACRANIAL ABNORMALITIES ARE APPRECIATED. 2. REMOTE AREA OF ISCHEMIA IN THE LEFT OCCIPITAL REGION AND LEFT THALAMUS/ BASAL GANGLIA. JOB NUMBER: [id number] MTDD
--- NOTE | 2017-10-19 10:51 | RADIOLOGY REPORT ---
EXAM: PORTABLE CHEST HISTORY: DIFFICULTY BREATHING. TECHNIQUE: A single AP view of the chest was performed. Comparison: 09/27/17. FINDINGS: The heart size is normal. No pulmonary vascular congestion. No infiltrate or pleural effusion. The osseous structures are normal. IMPRESSION: NO ACUTE DISEASE PROCESS. JOB NUMBER: [id number] MTDD
== END 2017-10-17 21:59 | disposition short-term general hospital (02) ==
LOC: ER 16:47
DX: A41.9 Sepsis, unspecified organism (principal); R50.9 Fever, unspecified; R79.89 Other specified abnormal findings of blood chemistry; R41.82 Altered mental status, unspecified; R53.1 Weakness; I50.9 Heart failure, unspecified; I10 Essential (primary) hypertension; I69.951 Hemiplegia and hemiparesis following unspecified cerebrovascular disease affecting right dominant side; E11.9 Type 2 diabetes mellitus without complications; Z95.5 Presence of coronary angioplasty implant and graft; Z79.4 Long term (current) use of insulin
CPT/HCPCS: 99285 ×2; 96365; 96366; 96367; 82550; 83735; 82553; 80053; 84443; 84484; 85027; 83880; 71045; 70450; 93005; 93010; J1956; J7030